=== PATIENT | female | born 1990 | race Caucasian/White ===

== ENCOUNTER 2017-06-11 19:53 | Emergency (ER) | payer MEDICAID, MEDICARE, SELFPAY ==
[2017-06-11] MEDS ORDERED: traMADol HCl 50 MG TAB ONE (21:03)
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
== END 2017-06-11 22:01 | disposition home or self-care (01) ==
LOC: ERS 19:53
DX: S20.212A Contusion of left front wall of thorax, initial encounter (principal); S20.221A Contusion of right back wall of thorax, initial encounter; J45.909 Unspecified asthma, uncomplicated; F17.210 Nicotine dependence, cigarettes, uncomplicated; V43.62XA Car passenger injured in collision with other type car in traffic accident, initial encounter
CPT/HCPCS: 71020

== ENCOUNTER 2017-08-07 06:02 | Emergency (ER) | payer MEDICAID, MEDICARE, SELFPAY | END 2017-08-07 07:05 | disposition home or self-care (01) | LOC: ERS 06:02 | DX: M54.5 Low back pain (principal); J45.909 Unspecified asthma, uncomplicated; F17.210 Nicotine dependence, cigarettes, uncomplicated | CPT/HCPCS: 99406 ==

== ENCOUNTER 2017-11-25 19:29 | Emergency (ER) | payer SELFPAY ==
[2017-11-25 21:53] LABS: #Basophils 0.1 thou/uL (0.0-0.2); #Eosinphils 0.4 thou/uL (0.0-0.7); #Lymphocytes 3.1 thou/uL (1.20-3.40); #Monocytes 0.5 thou/uL (0.11-0.59); #Neutrophils 7.1 thou/uL (1.40-6.50); %Basophils 0.6 % (0.0-1.0); %Eosinophils 3.8 % (0.0-10.0); %Lymphocytes 27.6 % (21.0-51.0); %Monocytes 4.6 % (0.0-10.0); %Neutrophils 63.5 % (42.0-75.0); Hemoglobin 13.6 g/dL (12.0-16.0); Mean Corpuscular HGB CONC 34.5 g/dL (32.0-36.0); Mean Corpuscular Hemoglobin 31.6 pg (27.0-31.0); Mean Corpuscular Volume 91.5 fl (81.0-99.0); Platelet Count 283 thou/uL (130-400); Red Blood Cell (RBC) Count 4.31 mill/uL (4.20-5.40); White Blood Cell (WBC) Count 11.2 thou/uL (4.8-10.8)
--- NOTE | 2017-11-25 22:06 | RAD ---
AP VIEW OF THE CHEST: 11/25/17 INDICATION: Three days of migraine headache without fever. FINDINGS: There are low lung volumes. No focal consolidation, pleural effusion or pneumothorax evident. No acut e osseous abnormality is evident. Heart size and pulmonary vasculature are accentuated by the hypoinf lation. IMPRESSION: Hypoinflation. No definite acute cardiopulmonary abnormality. POS: [facility]
[2017-11-25 22:13] LABS: ALT (SGPT) 38 U/L (8-55); AST (SGOT) 26 U/L (5-34); Alkaline Phosphatase 105 U/L (40-150); Anion Gap 12 mmol/L (10-20); BUN (Urea Nitrogen) 15 mg/dL (7.0-18.7); Bilirubin, Total 0.3 mg/dL (0.2-1.2); Calc. Creatinine Clearance 0 mL/min (70-130); Calcium 9.2 mg/dL (7.8-10.44); Carbon Dioxide 25 mmol/L (22-29); Chloride 101 mmol/L (98-107); Estimated GFR-MDRD 69; Globulin 3.5 g/dL (2.4-3.5); Glucose 78 mg/dL (70-105); Potassium 4.1 mmol/L (3.5-5.1); Protein, Total 7.5 g/dL (6.0-8.3); Sodium 134 mmol/L (136-145)
[2017-11-25] MEDS ORDERED: Metoclopramide HCl 10 MG/2 ML VIAL ONE (22:27)
[2017-11-25] MEDS ORDERED: diphenhydrAMINE 50 MG/ML VIAL ONE (22:27)
[2017-11-25] MEDS ORDERED: Magnesium Sulfate 2 GM/100 ML BAG ONE (23:08)
[2017-11-25 23:52] LABS: Bilirubin Negative (Negative); Blood, Urine Negative (Negative); Clarity CLEAR (Clear); Glucose, Urine (Dipstick) Negative (Negative); Leukocyte Negative (Negative); Nitrite Negative (Negative); Protein, Urine (Dipstick) Negative (Neg-Trace); Specific Gravity, Urine 1.007 (1.002-1.036); Urobilinogen 0.2 mg/dL (0.2-1.0)
[2017-11-25 23:54] LABS: Pregnancy Test - Urine (BHCG) Negative (Negative); Pregu Control Background? CLEAR/WHITE (CLR/WHITE); Pregu Control Bar Appear? YES (CONTROL BAR)
[2017-11-25 23:55] LABS: Specific Gravity 1.007 (1.002-1.036)
[2017-11-26] MEDS ORDERED: Dexamethasone 10 MG/ML VIAL ONE (01:01)
== END 2017-11-26 01:24 | disposition home or self-care (01) ==
LOC: ERS 19:29
DX: R51 Headache (principal); J45.909 Unspecified asthma, uncomplicated; F17.210 Nicotine dependence, cigarettes, uncomplicated
CPT/HCPCS: 71045; 80053; 81003; 81025; 83880; 85025; 96361; 96365; 96375; J1100; J1200; J2765; J3475

== ENCOUNTER 2017-11-27 15:07 | Observation (INO) | payer SELFPAY ==
[2017-11-27] MEDS ORDERED: diphenhydrAMINE 50 MG/ML VIAL ONE (18:06)
[2017-11-27] MEDS ORDERED: Metoclopramide HCl 10 MG/2 ML VIAL ONE (18:06)
[2017-11-27 18:33] LABS: #Eosinphils 0.1 thou/uL (0.0-0.7); #Monocytes 0.8 thou/uL (0.11-0.59); #Neutrophils 6.9 thou/uL (1.40-6.50); %Basophils 0.2 % (0.0-1.0); %Eosinophils 0.5 % (0.0-10.0); %Lymphocytes 34.3 % (21.0-51.0); %Monocytes 6.7 % (0.0-10.0); %Neutrophils 58.3 % (42.0-75.0); Hemoglobin 12.7 g/dL (12.0-16.0); Mean Corpuscular HGB CONC 33.4 g/dL (32.0-36.0); Mean Corpuscular Hemoglobin 30.8 pg (27.0-31.0); Mean Corpuscular Volume 92.4 fl (81.0-99.0); Mean Platelet Volume 7.3 fL (7.4-10.4); Platelet Count 275 thou/uL (130-400); RBC Distribution Width 12.3 % (11.5-14.5); Red Blood Cell (RBC) Count 4.11 mill/uL (4.20-5.40); White Blood Cell (WBC) Count 11.7 thou/uL (4.8-10.8)
[2017-11-27 18:40] LABS: BHCG - Serum Negative (NEGATIVE); Pregs Control Background? CLEAR/WHITE (CLR/WHITE); Pregs Control Bar Appear? YES (CONTROL BAR)
[2017-11-27 18:54] LABS: ALT (SGPT) 29 U/L (8-55); AST (SGOT) 17 U/L (5-34); Albumin 3.9 g/dL (3.5-5.0); Alkaline Phosphatase 87 U/L (40-150); Anion Gap 10 mmol/L (10-20); BUN (Urea Nitrogen) 16 mg/dL (7.0-18.7); Bilirubin, Total 0.2 mg/dL (0.2-1.2); Calc. Creatinine Clearance 0 mL/min (70-130); Calcium 9.3 mg/dL (7.8-10.44); Carbon Dioxide 28 mmol/L (22-29); Chloride 106 mmol/L (98-107); Estimated GFR-MDRD 85; Globulin 3.2 g/dL (2.4-3.5); Glucose 86 mg/dL (70-105); Potassium 3.9 mmol/L (3.5-5.1); Protein, Total 7.1 g/dL (6.0-8.3); Sodium 140 mmol/L (136-145)
--- NOTE | 2017-11-27 20:50 | CT ---
CT BRAIN WITHOUT CONTRAST: HISTORY: Headache. Fever. Photopenia. COMPARISON: CT brain from 10/26/2016. FINDINGS: No acute territorial infarct or hemorrhage. No midline shift or mass effect. The ventricular size a nd the extraaxial CSF spaces are normal. The calvarium is intact. The paranasal sinuses and mastoids are clear. IMPRESSION: No acute intracranial abnormality. POS: [facility]
[2017-11-27] MEDS ORDERED: Lorazepam 2 MG/ML VIAL ONE (20:57)
[2017-11-27] MEDS ORDERED: Lidocaine 1% (PF) 30 ML VIAL ONE ×2 (20:58)
[2017-11-27] MEDS ORDERED: Morphine 4 MG/ML VIAL ONE (20:58)
[2017-11-27] MEDS ORDERED: Dexamethasone 10 MG/ML VIAL ONE (21:11)
[2017-11-27] MEDS ORDERED: Magnesium Sulfate 2 GM/100 ML BAG ONE (21:12)
[2017-11-27 22:32] LABS: CSF Source CSF; Clarity Clear (Clear); Tube # 1
[2017-11-27 22:34] LABS: CSF Source CSF; Clarity Clear (Clear); RBC Count - Manual 1 /cumm (None Seen); RBC Count - Manual 14 /cumm (None Seen); Tube # 4; WBC/NonHematics Count - Manual 2 /cumm (0-5)
[2017-11-27] MEDS ORDERED: Acetaminophen 500 MG TAB ONE ×2 (23:05→23:09)
[2017-11-27 23:53] LABS: Color Of CSF Supernatant COLORLESS (Colorless); Unspun CSF Color COLORLESS (Colorless)
[2017-11-27 23:54] LABS: Tube # 1
[2017-11-27 23:59] LABS: CSF, Glucose 64 mg/dl (40-70); CSF, Protein 28 mg/dL (15-40)
[2017-11-28] MEDS ORDERED: Acetaminophen 325 MG TAB PO PRN (01:48)
[2017-11-28] MEDS ORDERED: Ondansetron HCl/PF 4 MG/2 ML Vial IVP PRN (01:48)
[2017-11-28] MEDS ORDERED: Ondansetron ODT 4 MG TAB SL PRN (01:48)
[2017-11-28] MEDS: HYDROcodone/Acetaminophen 10/325 mg Tablet PO PRN ×3 (11:03→18:52)
[2017-11-28 13:12] VITALS: BMI 37.5
[2017-11-28] MEDS: cefTRIAXone\\ROCEPHIN 2 GM in Sodium Chloride 0.9% 100 ML IVPB SCH (15:25)
[2017-11-28] MEDS: Sodium Chloride 0.9% 1,000 ML IV SCH ×2 (15:28→21:08)
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
--- NOTE | 2017-11-28 20:32 | CON ---
DATE OF CONSULTATION: 11/28/2017 CONSULTING PHYSICIAN: Hospitalist Service. IMPRESSION: Acute onset of a severe headache with a negative workup thus far suggesting a migraine. PLAN: Suman protocol. HISTORY OF PRESENT ILLNESS: Ms. Higgins is a 27-year-old white female, who denies a past history of hea daches. Five days ago, she developed abrupt onset of a severe headache in the frontal region. It sp read to more global location, has a throbbing quality, and has been associated with some nausea and d izziness. The pain is intensified by activities. She had a CT scan of the brain done, which was neg ative. She had a spinal tap done, which did not show any evidence of infection or bleeding. She has been given hydrocodone, but still reports 8/10 headache. She is not at this point as far s he knows she has not been recently either. There were no prodromal symptoms that she can re call. She apparently had some transient fever since admission. PAST MEDICAL HISTORY: Otherwise, negative. ALLERGIES: None reported. SOCIAL HISTORY: Unremarkable. FAMILY HISTORY: Unremarkable. REVIEW OF SYSTEMS: Negative for any double vision, vision loss, slurred speech, difficulty swallowin g, lateralized weakness or numbness. No alteration of consciousness or seizures. PHYSICAL EXAMINATION: GENERAL: She is a moderately obese young woman, sitting at the bedside, in some degree of distress. VITAL SIGNS: Have been stable. She is afebrile. HEENT: Pupils are equal and reactive. Conjunctivae clear. Oropharynx is clear. She is a bit photo phobic. NEUROLOGIC: She is alert and cooperative. Her speech is fluent and clear. Exam is nonfocal. SUMMARY: I suspect we are dealing with migraine. Hopefully, she will respond to the [facility] and be stable for discharge tomorrow.
[2017-11-28] MEDS: Famotidine/PF 20 mg/2ml Vial SLOW IVP SCH (20:48)
[2017-11-28] MEDS: Vancomycin HCl 1 GM in Premix Bag 1 BAG IVPB SCH (20:49)
[2017-11-28] MEDS ORDERED: Vancomycin HCl 1 GM in Sodium Chloride 0.9% 250 ML 250 ML IVPB SCH (21:00)
[2017-11-29] MEDS: HYDROcodone/Acetaminophen 10/325 mg Tablet PO PRN ×5 (00:05→22:33)
[2017-11-29 05:28] LABS: #Eosinphils 0.1 thou/uL (0.0-0.7); #Lymphocytes 4.1 thou/uL (1.20-3.40); #Monocytes 0.6 thou/uL (0.11-0.59); #Neutrophils 3.9 thou/uL (1.40-6.50); %Basophils 0.5 % (0.0-1.0); %Eosinophils 0.7 % (0.0-10.0); %Lymphocytes 47.7 % (21.0-51.0); %Monocytes 6.5 % (0.0-10.0); %Neutrophils 44.7 % (42.0-75.0); Hemoglobin 12.3 g/dL (12.0-16.0); Mean Corpuscular HGB CONC 32.7 g/dL (32.0-36.0); Mean Corpuscular Hemoglobin 30.9 pg (27.0-31.0); Mean Corpuscular Volume 94.5 fl (81.0-99.0); Mean Platelet Volume 7.2 fL (7.4-10.4); Platelet Count 226 thou/uL (130-400); RBC Distribution Width 12.4 % (11.5-14.5); Red Blood Cell (RBC) Count 3.99 mill/uL (4.20-5.40); White Blood Cell (WBC) Count 8.6 thou/uL (4.8-10.8)
[2017-11-29 05:43] LABS: Anion Gap 10 mmol/L (10-20); BUN (Urea Nitrogen) 17 mg/dL (7.0-18.7); Calc. Creatinine Clearance 209 mL/min (70-130); Calcium 8.5 mg/dL (7.8-10.44); Carbon Dioxide 23 mmol/L (22-29); Chloride 110 mmol/L (98-107); Estimated GFR-MDRD 89; Glucose 78 mg/dL (70-105); Potassium 3.7 mmol/L (3.5-5.1); Sodium 139 mmol/L (136-145)
[2017-11-29] MEDS ORDERED: Metoclopramide HCl 10 MG/2 ML VIAL IVP SCH (11:00)
[2017-11-29] MEDS ORDERED: Valproate Sodium 1,500 MG in Sodium Chloride 0.9% 100 ML IVPB SCH (11:00)
[2017-11-29] MEDS ORDERED: Dexamethasone 4 mg/ml Vial SLOW IVP SCH (11:00)
[2017-11-29] MEDS: Dihydroergotamine Mesylate 1 MG/ML AMP SLOW IVP SCH ×2 (11:34→17:56)
[2017-11-29] MEDS: Sodium Chloride 0.9% 1,000 ML IV SCH ×2 (14:46→17:14)
[2017-11-29] MEDS ORDERED: Promethazine HCl 25 MG/ML VIAL SLOW IVP PRN (15:07)
[2017-11-29] MEDS ORDERED: Morphine 5 MG/ML SYRINGE SLOW IVP PRN (15:07)
[2017-11-29] MEDS: Famotidine/PF 20 mg/2ml Vial SLOW IVP SCH ×2 (16:03→22:34)
[2017-11-29] MEDS: cefTRIAXone\\ROCEPHIN 2 GM in Sodium Chloride 0.9% 100 ML IVPB SCH (16:06)
[2017-11-29] MEDS: Vancomycin HCl 1 GM in Premix Bag 1 BAG IVPB SCH (17:00)
--- NOTE | 2017-11-29 21:35 | PDOC.PN ---
- Subjective Encounter Start Date: 11/29/17 Encounter Start Time: 11:00 PAtient is seen today, alert and oriented. She continuos to have headache, not responding to PO narcotics, pt needing IV narcotics to keep Headache down. No fever. - Objective Resuscitation Status: Resuscitation Status FULL:Full Resuscitation MAR Reviewed: Yes Vital Signs & Weight: Vital Signs (12 hours) Temp Pulse Resp BP 11/29/17 17:28 98.9 F 63 20 111/62 11/29/17 11:36 97.6 F 60 20 112/60 Weight Admit Weight 269 lb 2.944 oz Weight 269 lb 2.944 oz I&O: 11/28/17 11/29/17 11/30/17 06:59 06:59 06:59 Intake Total 997 Balance 997 Result Diagrams: 11/29/17 05:12 11/29/17 05:12 Radiology Reviewed by me: Yes Phys Exam - Physical Examination HEENT: PERRLA, moist MMs Neck: no nodes, no JVD Respiratory: no wheezing, no rales Gastrointestinal: soft, non-tender Musculoskeletal: no edema Dx/Plan (1) Intractable headache Code(s): R51 - HEADACHE Status: Acute Comment: Pt is seen today, persistant headache, Not controlled with Oral narcotics, Neurology seen pt, said likely Migraine. Plan discharge when pt able to tolrate oral meds. (2) Acute bacterial meningitis Code(s): G00.9 - BACTERIAL MENINGITIS, UNSPECIFIED Status: Acute Comment: No fever, Normal WBC. With No fever, No neck stiffness, cultures remain neg, Likely poor evidence of Menningitis, will d/c Abx if No fever tomorrow. (3) Morbid obesity Code(s): E66.01 - MORBID (SEVERE) OBESITY DUE TO EXCESS CALORIES Status: Acute (4) HTN (hypertension) Code(s): I10 - ESSENTIAL (PRIMARY) HYPERTENSION Status: Acute Comment: well controlled.waiitng on echo. - Plan cont current plan of care, continue antibiotics, PT/OT, incentive spirometry, out of bed/ambulate, DVT proph w/lovenox * . - Discharge Day Encounter end time: 11:35 Review of Systems - Review of Systems Constitutional: weakness. negative: fever, chills, sweats, malaise, other Eyes: negative: Pain, Vision Change, Conjunctivae Inflammation, Eyelid Inflammation, Redness, Other ENT: negative: Ear Pain, Ear Discharge, Nose Pain, Nose Discharge, Nose Congestion, Mouth Pain, Mouth Swelling, Throat Pain, Throat Swelling, Other Respiratory: negative: Cough, Dry, Shortness of Breath, Hemoptysis, SOB with Excertion, Pleuritic Pain, Sputum, Wheezing Cardiovascular: negative: chest pain, palpitations, orthopnea, paroxysmal nocturnal dyspnea, edema, light headedness, other Gastrointestinal: negative: Nausea, Vomiting, Abdominal Pain, Diarrhea, Constipation, Melena, Hematochezia, Other Musculoskeletal: negative: Neck Pain, Shoulder Pain, Arm Pain, Back Pain, Hand Pain, Leg Pain, Foot Pain, Other - Medications/Allergies Allergies/Adverse Reactions: Allergies Allergy/AdvReac Type Severity Reaction Status Date / Time ketorolac [From Toradol] Allergy Verified 11/28/17 01:47 Medications: Current Medications Hydrocodone Bitart/Acetaminophen ([place] 10/325) 1 tab PO Q4H PRN PRN Reason: Pain Last Admin: 11/29/17 17:55 Dose: 1 tab Dihydroergotamine Mesylate (D.H.E. 45) 0.5 mg SLOW IVP Q6HR ESTELA Stop: 11/30/17 06:01 Last Admin: 11/29/17 17:56 Dose: 0.5 mg Famotidine (Pepcid) 20 mg SLOW IVP Q12HR ESTELA Last Admin: 11/29/17 16:03 Dose: 20 mg Sodium Chloride (Normal Saline 0.9%) 1,000 mls @ 100 mls/hr IV .Q10H ESTELA Last Admin: 11/29/17 17:14 Dose: Not Given Ceftriaxone Sodium 2 gm/ (Sodium Chloride) 100 mls @ 200 mls/hr IVPB Q24HR ESTELA Last Admin: 11/29/17 16:06 Dose: 100 mls Vancomycin HCl 1 gm/ Device 200 mls @ 200 mls/hr IVPB 0500,1700 ESTELA Morphine Sulfate (Morphine) 3 mg SLOW IVP Q4H PRN PRN Reason: Headache Promethazine HCl (Phenergan) 12.5 mg SLOW IVP Q6H PRN PRN Reason: Nausea Last Admin: 11/29/17 16:07 Dose: 12.5 mg Sodium Chloride (Flush - Normal Saline) 10 ml IVF Q12HR ESTELA Last Admin: 11/29/17 17:58 Dose: 10 ml Sodium Chloride (Flush - Normal Saline) 10 ml IVF PRN PRN PRN Reason: Saline Flush
[2017-11-30] MEDS: Sodium Chloride 0.9% 1,000 ML IV SCH ×2 (00:27→14:22)
[2017-11-30] MEDS: Dihydroergotamine Mesylate 1 MG/ML AMP SLOW IVP SCH ×2 (00:28→06:21)
[2017-11-30] MEDS ORDERED: Vancomycin HCl 1 GM in Premix Bag 1 BAG IVPB SCH (05:00)
[2017-11-30] MEDS: HYDROcodone/Acetaminophen 10/325 mg Tablet PO PRN ×2 (06:24→10:35)
[2017-11-30] MEDS: Famotidine/PF 20 mg/2ml Vial SLOW IVP SCH (08:58)
[2017-11-30 12:14] VITALS: BP 127/68; TEMP 97.9
--- NOTE | 2017-11-30 14:11 | DIS ---
DATE OF ADMISSION: 11/28/2017 DATE OF DISCHARGE: 11/30/2017 ADMITTING DIAGNOSIS: Acute intractable headache. DISCHARGE DIAGNOSIS: Acute intractable headache, likely migraine. SECONDARY DIAGNOSES: 1. Possible meningitis ruled out. 2. Morbid obesity. 3. Volume overload with pedal edema. 4. Hypertension. HISTORY OF PRESENT ILLNESS AND HOSPITAL COURSE: In brief, this is a 27-year-old morbidly obese white female who was recently admitted with a severe headache and was discharged home and she returned mathieu with worsening headache with a fever of 101 and with neck stiffness. Initially with a suspicion fo r meningitis, she was started on IV antibiotics with vancomycin and Rocephin. She had a lumbar punct ure, which showed a clear CSF fluid and there was no growth in the cultures and no WBCs. Her antibio tics were stopped after 2 days and she had no fevers. Neurology was also consulted because of the pe rsistent headaches and he suggested the patient could be having atypical migraine headaches and sugge sted to continue on the pain medications. Patient's headache has slowly resolved, but she was on IV narcotics which was changed to p.o Tylenol #3 on the day of discharge. The patient was sent home, re assured about ruling out meningitis. PHYSICAL EXAMINATION: On date of discharge: VITAL SIGNS: Blood pressures are 127/68, heart rate is 58, respiration rate is 18, saturation 98%. GENERAL: The patient is moderately built and morbidly obese. She is alert and oriented x3. HEENT: Atraumatic, normocephalic. CARDIOVASCULAR: S1, S2 normal. No murmurs, no rubs, no gallops. LUNGS: Bilateral air entry was equal. No wheezing, no crackles. ABDOMEN: Soft, nontender. No guarding, no rebound tenderness. Bowel sounds normal. MUSCULOSKELETAL: No calf tenderness. No pedal edema. DISCHARGE MEDICATIONS: The patient was discharged on Tylenol #3 and advised to take 1 tablet q.6 polly rs as needed. DISCHARGE INSTRUCTIONS: Continue activity as tolerated. Advised to return to work as she feels comf ortable with the headache. Continue with heart healthy diet. Advised to increase physical activity and exercise and to lose weight. I spent 35 minutes with this patient the day of discharge.
== END 2017-11-30 14:31 | disposition home or self-care (01) ==
LOC: ERS 15:07 → 3SE 11-28 00:10
PROVIDERS: ADMIT Internal Medicine; ATTEND Internal Medicine
DX: R51 Headache (principal); I10 Essential (primary) hypertension; E87.70 Fluid overload, unspecified; E66.01 Morbid (severe) obesity due to excess calories; Z68.35 Body mass index [BMI] 35.0-35.9, adult; Z88.8 Allergy status to other drugs, medicaments and biological substances
CPT/HCPCS: 36415; 62270; 70450; 80048; 80053; 82945; 83605; 84145; 84157; 84703; 85025; 86140; 87040; 87070; 87205; 89051; 96361; 96365; 96366; 96367; 96375; 96376; 99406; A4216; G0378; J0696; J1100; J1110; J1200; J2001; J2060; J2270; J2550; J2765; J3370; J3475; J7050; Q0162; S0028

== ENCOUNTER 2018-04-05 00:38 | Emergency (ER) | payer SELFPAY ==
[2018-04-05 01:13] LABS: #Basophils 0.1 thou/uL (0.0-0.2); #Eosinphils 0.2 thou/uL (0.0-0.7); #Lymphocytes 2.1 thou/uL (1.20-3.40); #Monocytes 0.5 thou/uL (0.11-0.59); #Neutrophils 5.4 thou/uL (1.40-6.50); %Basophils 0.8 % (0.0-1.0); %Eosinophils 2.6 % (0.0-10.0); %Lymphocytes 25.3 % (21.0-51.0); %Monocytes 6.1 % (0.0-10.0); %Neutrophils 65.2 % (42.0-75.0); Hemoglobin 13.1 g/dL (12.0-16.0); Mean Corpuscular HGB CONC 32.9 g/dL (32.0-36.0); Mean Corpuscular Hemoglobin 30.4 pg (27.0-31.0); Mean Corpuscular Volume 92.6 fL (78.0-98.0); Mean Platelet Volume 6.9 fL (7.4-10.4); Platelet Count 343 thou/uL (130-400); RBC Distribution Width 12.6 % (11.5-14.5); Red Blood Cell (RBC) Count 4.31 mill/uL (4.20-5.40); White Blood Cell (WBC) Count 8.3 thou/uL (4.8-10.8)
[2018-04-05 01:35] LABS: ALT (SGPT) 35 U/L (8-55); AST (SGOT) 28 U/L (5-34); Alkaline Phosphatase 93 U/L (40-150); Anion Gap 16 mmol/L (10-20); BUN (Urea Nitrogen) 14 mg/dL (7.0-18.7); Bilirubin, Total 0.2 mg/dL (0.2-1.2); CK (CPK) 98 U/L (29-168); Calc. Creatinine Clearance 0 mL/min (70-130); Calcium 9.1 mg/dL (7.8-10.44); Carbon Dioxide 17 mmol/L (22-29); Chloride 107 mmol/L (98-107); Estimated GFR-MDRD 84; Globulin 3.6 g/dL (2.4-3.5); Glucose 102 mg/dL (70-105); Lipase 23 U/L (8-78); Potassium 3.8 mmol/L (3.5-5.1); Protein, Total 7.6 g/dL (6.0-8.3); Sodium 136 mmol/L (136-145)
[2018-04-05 01:39] LABS: CKMB 0.7 ng/mL (0-6.6); Troponin I Less than 0.010 ng/mL (< 0.028)
--- NOTE | 2018-04-05 07:52 | RAD ---
PORTABLE UPRIGHT FRONTAL CHEST RADIOGRAPH: DATE: 04/05/18. COMPARISON: 11/25/17. HISTORY: Chest pain. FINDINGS: No pneumothorax, pleural fluid, focal consolidation, or alveolar edema. Heart and mediastinal contou rs unremarkable. IMPRESSION: No acute findings. POS: [facility]
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
[2018-04-05] MEDS ORDERED: ISOVUE-370 76%-LOCM 1 ML ONE (11:09)
--- NOTE | 2018-04-07 18:24 | EKG ---
Test Reason : CHEST PAIN Blood Pressure : / mmHG Vent. Rate : 099 BPM Atrial Rate : 099 BPM P-R Int : 140 ms QRS Dur : 090 ms QT Int : 342 ms P-R-T Axes : 047 016 025 degrees QTc Int : 438 ms Normal sinus rhythm Normal ECG Confirmed by MCKENZIE JAMES, KARAN Diaz ([id number]), video tape editor BEAR MOORE ([id number]) on 04/07/2018 6:24:12 PM Referred By: MCKENZIE Confirmed By:KARAN RINCON MD
== END 2018-04-05 03:37 | disposition home or self-care (01) ==
LOC: ERS 00:38
DX: R07.9 Chest pain, unspecified (principal); J45.909 Unspecified asthma, uncomplicated; Z87.891 Personal history of nicotine dependence
CPT/HCPCS: 36415; 71045; 71275; 80053; 82553; 83690; 84484; 85025; 85379; 93005; 94640; J7620

== ENCOUNTER 2018-04-10 06:40 | Emergency (ER) | payer SELFPAY ==
[2018-04-10] MEDS ORDERED: predniSONE 20 MG TAB ONE (07:49)
[2018-04-10] MEDS ORDERED: Acetaminophen 500 MG TAB ONE (07:49)
[2018-04-10 07:54] LABS: #Basophils 0.1 thou/uL (0.0-0.2); #Eosinphils 0.4 thou/uL (0.0-0.7); #Lymphocytes 3.2 thou/uL (1.20-3.40); #Monocytes 0.6 thou/uL (0.11-0.59); #Neutrophils 6.5 thou/uL (1.40-6.50); %Basophils 0.7 % (0.0-1.0); %Lymphocytes 29.8 % (21.0-51.0); %Monocytes 5.7 % (0.0-10.0); %Neutrophils 59.7 % (42.0-75.0); Hemoglobin 13.1 g/dL (12.0-16.0); Mean Corpuscular HGB CONC 32.9 g/dL (32.0-36.0); Mean Corpuscular Hemoglobin 30.3 pg (27.0-31.0); Mean Corpuscular Volume 92.2 fL (78.0-98.0); Mean Platelet Volume 6.9 fL (7.4-10.4); Platelet Count 413 thou/uL (130-400); RBC Distribution Width 12.4 % (11.5-14.5); Red Blood Cell (RBC) Count 4.33 mill/uL (4.20-5.40); White Blood Cell (WBC) Count 10.8 thou/uL (4.8-10.8)
[2018-04-10 08:27] LABS: ALT (SGPT) 27 U/L (8-55); AST (SGOT) 18 U/L (5-34); Albumin 4.1 g/dL (3.5-5.0); Alkaline Phosphatase 105 U/L (40-150); Anion Gap 13 mmol/L (10-20); BUN (Urea Nitrogen) 20 mg/dL (7.0-18.7); Bilirubin, Total 0.3 mg/dL (0.2-1.2); Calc. Creatinine Clearance 0 mL/min (70-130); Calcium 9.6 mg/dL (7.8-10.44); Carbon Dioxide 22 mmol/L (22-29); Chloride 106 mmol/L (98-107); Estimated GFR-MDRD 78; Globulin 3.6 g/dL (2.4-3.5); Glucose 89 mg/dL (70-105); Lipase 53 U/L (8-78); Potassium 3.9 mmol/L (3.5-5.1); Protein, Total 7.7 g/dL (6.0-8.3); Sodium 137 mmol/L (136-145)
--- NOTE | 2018-04-10 08:31 | RAD ---
AP VIEW CHEST: Date: 04/10/18 INDICATION: Cough and abdominal pain. COMPARISON: Prior exam dated 04/05/18. IMPRESSION: No acute cardiopulmonary abnormality demonstrated. The examination is not appreciably changed from e recent comparison study. POS: [facility]
[2018-04-10 09:08] LABS: Bilirubin Negative (Negative); Blood, Urine Trace (Negative); Clarity CLEAR (Clear); Glucose, Urine (Dipstick) Negative (Negative); Leukocyte Negative (Negative); Nitrite Negative (Negative); Protein, Urine (Dipstick) Negative (Neg-Trace); Specific Gravity, Urine 1.016 (1.002-1.036); Urobilinogen 0.2 mg/dL (0.2-1.0); pH, Urine 5.5 (5.0-9.0)
[2018-04-10 09:09] LABS: Bacteria/HPF None Seen HPF (None Seen); Hyaline Casts/LPF 0-3 HYALINE CAST LPF (0-3 Hyaline); Pathc Cast-AUWi Flag 0.29 (0-2.49); Squamous Epithelial 0-3 HPF (0-3); WBC/HPF 0-3 HPF (0-3)
[2018-04-10 09:13] LABS: Pregnancy Test - Urine (BHCG) Negative (Negative); Pregu Control Background? CLEAR/WHITE (CLR/WHITE); Pregu Control Bar Appear? YES (CONTROL BAR); Specific Gravity 1.016 (1.002-1.036)
== END 2018-04-10 09:35 | disposition home or self-care (01) ==
LOC: ERS 06:40
DX: J18.9 Pneumonia, unspecified organism (principal); J45.909 Unspecified asthma, uncomplicated; R10.31 Right lower quadrant pain; F17.210 Nicotine dependence, cigarettes, uncomplicated; Z79.899 Other long term (current) drug therapy
CPT/HCPCS: 36415; 71045; 80053; 81003; 81015; 81025; 83690; 85025; 94640; 96360; J7506; J7620

== ENCOUNTER 2018-05-02 00:54 | Emergency (ER) | payer SELFPAY ==
[2018-05-02] MEDS ORDERED: Morphine 4 MG/ML VIAL ONE (01:18)
== END 2018-05-02 01:35 | disposition home or self-care (01) ==
LOC: ERS 00:54
DX: H72.91 Unspecified perforation of tympanic membrane, right ear (principal); J45.909 Unspecified asthma, uncomplicated; F17.210 Nicotine dependence, cigarettes, uncomplicated; Z79.899 Other long term (current) drug therapy
CPT/HCPCS: 96372; J2270

== ENCOUNTER 2018-05-06 22:40 | Emergency (ER) | payer SELFPAY ==
[2018-05-06] MEDS ORDERED: HYDROcodone/Acetaminophen 10/325 mg Tablet ONE (23:10)
--- NOTE | 2018-05-07 00:30 | CT ---
CT BRAIN WITHOUT CONTRAST: INDICATIONS: History of fever, photophobia, and headache. FINDINGS: No acute infarct, hemorrhage, or hydrocephalus is present. The septum pellucidum and third ventricle are midline. There is mild paranasal sinus disease involving the ethmoid air cells. The skull is i ntact. Effusion involving the right mastoid air cells. No destructive osteolysis is present. IMPRESSION: 1. No acute intracranial abnormality demonstrated. 2. Mild paranasal sinus disease. 3. Small partial effusion in the right mastoid air cells. POS: [facility]
== END 2018-05-07 00:15 | disposition home or self-care (01) ==
LOC: ERS 22:40
DX: H66.91 Otitis media, unspecified, right ear (principal); H72.91 Unspecified perforation of tympanic membrane, right ear; H70.91 Unspecified mastoiditis, right ear; J45.909 Unspecified asthma, uncomplicated; F17.210 Nicotine dependence, cigarettes, uncomplicated; Z79.899 Other long term (current) drug therapy
CPT/HCPCS: 70450

== ENCOUNTER 2018-07-14 17:26 | Emergency (ER) | payer SELFPAY | END 2018-07-14 18:13 | disposition home or self-care (01) | LOC: ERS 17:26 | DX: J02.9 Acute pharyngitis, unspecified (principal); J45.909 Unspecified asthma, uncomplicated; F17.210 Nicotine dependence, cigarettes, uncomplicated | CPT/HCPCS: 87081; 87430; 99283 ==

== ENCOUNTER 2018-07-25 12:15 | Emergency (ER) | payer SELFPAY ==
[2018-07-25 12:45] LABS: Bilirubin Small (Negative); Blood, Urine Large (Negative); Clarity CLOUDY (Clear); Glucose, Urine (Dipstick) Negative (Negative); Leukocyte Small (Negative); Nitrite Positive (Negative); Protein, Urine (Dipstick) 30 mg/dL (Neg-Trace); Specific Gravity, Urine 1.027 (1.002-1.036); pH, Urine 5.5 (5.0-9.0)
[2018-07-25 12:47] LABS: Bacteria/HPF None Seen HPF (None Seen); Hyaline Casts/LPF 7-10 HYALINE CAST LPF (0-3 Hyaline); Pathc Cast-AUWi Flag 1.59 (0-2.49); RBC/HPF GREATER THAN 50-TNTC HPF (0-3); Squamous Epithelial 0-3 HPF (0-3); WBC/HPF 21-50 HPF (0-3)
[2018-07-25 12:51] LABS: Pregnancy Test - Urine (BHCG) Negative (Negative); Pregu Control Background? CLEAR/WHITE (CLR/WHITE); Pregu Control Bar Appear? YES (CONTROL BAR); Specific Gravity 1.027 (1.002-1.036)
[2018-07-25 12:59] LABS: #Eosinphils 0.2 thou/uL (0.0-0.7); #Lymphocytes 2.4 thou/uL (1.20-3.40); #Monocytes 0.7 thou/uL (0.11-0.59); #Neutrophils 10.9 thou/uL (1.40-6.50); %Basophils 0.3 % (0.0-1.0); %Eosinophils 1.3 % (0.0-10.0); %Lymphocytes 16.7 % (21.0-51.0); %Monocytes 4.7 % (0.0-10.0); Hemoglobin 15.5 g/dL (12.0-16.0); Mean Corpuscular HGB CONC 33.5 g/dL (32.0-36.0); Mean Corpuscular Hemoglobin 30.2 pg (27.0-31.0); Mean Platelet Volume 7.4 fL (7.4-10.4); Platelet Count 330 thou/uL (130-400); RBC Distribution Width 12.4 % (11.5-14.5); Red Blood Cell (RBC) Count 5.13 mill/uL (4.20-5.40); White Blood Cell (WBC) Count 14.2 thou/uL (4.8-10.8)
[2018-07-25 13:18] LABS: ALT (SGPT) 27 U/L (8-55); AST (SGOT) 18 U/L (5-34); Albumin 4.5 g/dL (3.5-5.0); Alkaline Phosphatase 108 U/L (40-150); Anion Gap 18 mmol/L (10-20); BUN (Urea Nitrogen) 18 mg/dL (7.0-18.7); Bilirubin, Total 0.5 mg/dL (0.2-1.2); Calc. Creatinine Clearance 0 mL/min (70-130); Carbon Dioxide 21 mmol/L (22-29); Chloride 105 mmol/L (98-107); Estimated GFR-MDRD 64; Globulin 3.9 g/dL (2.4-3.5); Glucose 97 mg/dL (70-105); Potassium 3.5 mmol/L (3.5-5.1); Protein, Total 8.4 g/dL (6.0-8.3); Sodium 140 mmol/L (136-145)
[2018-07-25] MEDS ORDERED: Ondansetron PF 4 MG/2 ML Vial ONE (14:14)
[2018-07-25] MEDS ORDERED: Water For Inject, Bacteriostat 30 ML ONE (14:15)
[2018-07-25] MEDS ORDERED: cefTRIAXone\\ROCEPHIN 1 GM VIAL ONE (14:15)
[2018-07-25] MEDS ORDERED: Morphine 4 MG/ML VIAL ONE (14:45)
--- NOTE | 2018-07-25 14:45 | CT ---
CT ABDOMEN AND PELVIS WITHOUT IV CONTRAST: Date: 07/25/18 INDICATION: History of flank pain. COMPARISON: Prior CT of abdomen and pelvis dated 12/14/16 and CTA of chest dated 04/05/18. FINDINGS: There is a 3.0 mm calculus seen within the superior to mid pole of the right kidney. There is mild ri ght hydronephrosis. There is a 3.0 mm stone within the distal right ureter approximately 8.0 mm from the level of the bladder. Unopacified liver, pancreas, adrenal glands, and spleen appear within normal limits. Gallbladder is s urgically absent. No free fluid or enlarged lymph nodes are evident. There is a normal appendix in the right lower quadrant. The bladder is decompressed. A Schmorl's node involving the superior aspect of T12 is stable. There is mild scattered degenerative change of the lower lumbar spine. There are mild degenerative changes of both SI joints. IMPRESSION: 1. 3.0 mm distal right ureteral calculus with mild right hydronephrosis. 2. Right nephrolithiasis. 3. Cholecystectomy. POS: [facility]
[2018-07-25] MEDS ORDERED: HYDROcodone/Acetaminophen 5/325 mg Tablet ONE (15:24)
== END 2018-07-25 15:38 | disposition home or self-care (01) ==
LOC: ERS 12:15
DX: N13.2 Hydronephrosis with renal and ureteral calculous obstruction (principal); N10 Acute pyelonephritis; J45.909 Unspecified asthma, uncomplicated; F17.210 Nicotine dependence, cigarettes, uncomplicated
CPT/HCPCS: 36415; 74176; 80053; 81003; 81015; 81025; 85025; 96374; 96375; J0696; J2270; J2405

== ENCOUNTER 2018-07-26 08:28 | Emergency (ER) | payer SELFPAY ==
[2018-07-26] MEDS ORDERED: Ketorolac Tromethamine 30 MG/ML VIAL ONE (10:23)
[2018-07-26 10:32] LABS: #Basophils 0.1 thou/uL (0.0-0.2); #Eosinphils 0.2 thou/uL (0.0-0.7); #Lymphocytes 3.3 thou/uL (1.20-3.40); #Monocytes 0.7 thou/uL (0.11-0.59); #Neutrophils 8.3 thou/uL (1.40-6.50); %Basophils 0.6 % (0.0-1.0); %Eosinophils 1.5 % (0.0-10.0); %Lymphocytes 26.7 % (21.0-51.0); %Monocytes 5.2 % (0.0-10.0); Hemoglobin 14.5 g/dL (12.0-16.0); Mean Corpuscular HGB CONC 33.9 g/dL (32.0-36.0); Mean Corpuscular Hemoglobin 30.5 pg (27.0-31.0); Mean Platelet Volume 7.9 fL (7.4-10.4); Platelet Count 347 thou/uL (130-400); RBC Distribution Width 12.4 % (11.5-14.5); Red Blood Cell (RBC) Count 4.76 mill/uL (4.20-5.40); White Blood Cell (WBC) Count 12.5 thou/uL (4.8-10.8)
[2018-07-26] MEDS ORDERED: Morphine 4 MG/ML VIAL ONE ×2 (10:48→12:25)
[2018-07-26] MEDS ORDERED: Morphine 2 MG/ML SYRINGE ONE (10:48)
[2018-07-26] MEDS ORDERED: Ondansetron PF 4 MG/2 ML Vial ONE (10:49)
[2018-07-26 10:57] LABS: ALT (SGPT) 27 U/L (8-55); AST (SGOT) 17 U/L (5-34); Albumin 4.3 g/dL (3.5-5.0); Alkaline Phosphatase 98 U/L (40-150); BUN (Urea Nitrogen) 16 mg/dL (7.0-18.7); Bilirubin, Total 0.5 mg/dL (0.2-1.2); Calc. Creatinine Clearance 0 mL/min (70-130); Calcium 10.1 mg/dL (7.8-10.44); Carbon Dioxide 24 mmol/L (22-29); Chloride 106 mmol/L (98-107); Estimated GFR-MDRD 67; Globulin 3.8 g/dL (2.4-3.5); Glucose 104 mg/dL (70-105); Potassium 3.7 mmol/L (3.5-5.1); Protein, Total 8.1 g/dL (6.0-8.3); Sodium 142 mmol/L (136-145)
[2018-07-26 11:37] LABS: Anion Gap 16 mmol/L (10-20)
--- NOTE | 2018-07-26 13:37 | ULT ---
ULTRASOUND RENAL BILATERAL STANDARD: Date: 07/26/18 HISTORY: Pain. Bladder stones. COMPARISON: CT stone protocol prior day. FINDINGS: Real-time Ann scale and color evaluation of the urinary bladder and both kidneys was performed. FINDINGS: Right kidney measures 11.9 x 7.4 x 6.4 cm. Left kidney measures 11.6 x 6.4 x 6.6 cm. Only the left ur eteral jet is visualized. Mild right-sided hydronephrosis. IMPRESSION: Mild right-sided hydronephrosis with only the left ureteral jet visualized. This is likely sequelae o f a known distal ureteral stone. POS: [facility]
[2018-07-26] MEDS ORDERED: Lidocaine 2% PF 5 ML VIAL ONE (13:52)
[2018-07-26] MEDS ORDERED: Lidocaine 2% PF 5 ML VIAL IV SCH (14:00)
== END 2018-07-26 14:15 | disposition home or self-care (01) ==
LOC: ERS 08:28
DX: N30.00 Acute cystitis without hematuria (principal); N23 Unspecified renal colic; N13.30 Unspecified hydronephrosis; J45.909 Unspecified asthma, uncomplicated; F17.210 Nicotine dependence, cigarettes, uncomplicated; Z79.899 Other long term (current) drug therapy
CPT/HCPCS: 76770; 80053; 85025; 96361; 96374; 96375; 96376; J1885; J2001; J2270; J2405

== ENCOUNTER 2018-07-27 14:39 | Observation (INO) | payer SELFPAY ==
[2018-07-27 16:00] LABS: #Basophils 0.1 thou/uL (0.0-0.2); #Eosinphils 0.3 thou/uL (0.0-0.7); #Lymphocytes 3.9 thou/uL (1.20-3.40); #Monocytes 0.5 thou/uL (0.11-0.59); #Neutrophils 5.3 thou/uL (1.40-6.50); %Basophils 0.6 % (0.0-1.0); %Eosinophils 2.9 % (0.0-10.0); %Lymphocytes 38.8 % (21.0-51.0); %Monocytes 4.9 % (0.0-10.0); %Neutrophils 52.9 % (42.0-75.0); Hemoglobin 13.2 g/dL (12.0-16.0); Mean Corpuscular HGB CONC 34.1 g/dL (32.0-36.0); Mean Corpuscular Hemoglobin 30.9 pg (27.0-31.0); Mean Corpuscular Volume 90.7 fL (78.0-98.0); Mean Platelet Volume 7.6 fL (7.4-10.4); Platelet Count 268 thou/uL (130-400); RBC Distribution Width 12.1 % (11.5-14.5); Red Blood Cell (RBC) Count 4.26 mill/uL (4.20-5.40)
[2018-07-27 16:20] LABS: Anion Gap 14 mmol/L (10-20); BUN (Urea Nitrogen) 16 mg/dL (7.0-18.7); Calc. Creatinine Clearance 0 mL/min (70-130); Carbon Dioxide 23 mmol/L (22-29); Chloride 106 mmol/L (98-107); Estimated GFR-MDRD 77; Potassium 3.7 mmol/L (3.5-5.1); Sodium 139 mmol/L (136-145)
[2018-07-27 16:21] LABS: ALT (SGPT) 28 U/L (8-55); AST (SGOT) 19 U/L (5-34); Albumin 3.8 g/dL (3.5-5.0); Alkaline Phosphatase 97 U/L (40-150); Bilirubin, Total 0.2 mg/dL (0.2-1.2); Globulin 3.3 g/dL (2.4-3.5); Glucose 98 mg/dL (70-105); Protein, Total 7.1 g/dL (6.0-8.3)
[2018-07-27] MEDS ORDERED: Morphine 10 MG/ML VIAL ONE (18:36)
[2018-07-27] MEDS ORDERED: Ondansetron PF 4 MG/2 ML Vial ONE (18:36)
--- NOTE | 2018-07-27 19:21 | CT ---
CT ABDOMEN AND PELVIS 07/27/18 COMPARISON: 07/25/18 HISTORY: Pain, obstructive uropathy. TECHNIQUE: Axial CT imaging at 5 mm intervals from lung bases through pubic symphysis without contrast. Coronal reformatted imaging obtained. FINDINGS: Lack of contrast limits assessment of the viscera, bowel, vascular structures and for lymphadenopathy . Imaged lung bases are unremarkable. No free intraperitoneal air, or fluid. Cholecystectomy clips are noted in the right upper quadrant. There is a focal area of fatty infiltrat ion involving the anterior aspect of the left lobe of the liver. adjacent to the falciform ligament. The spleen, pancreas, and bilateral adrenal glands appear unremarkable. There is no evidence for obstructive uropathy or nephrolithiasis on the left. As seen on the prior examination, there is an obstructing stone within the distal right ureter at the ureterovesicular junction, best seen on axial image 86, measuring approximately 3 x 4 mm. There is r ight sided hydronephrosis, similar when compared to the prior examination. Of note, on the prior stud y there was an intrarenal calculus on the right in the mid pole region. That stone is now within the proximal right ureter at the level of the ureteropelvic junction suggesting a second obstructing ston e, measuring approximately 4 mm in craniocaudal dimension. The bowel demonstrates no evidence for inf lammatory change of obstruction. Appendix is visualized and appears within normal limits. The osseous structures demonstrate no worrisome lytic or blastic lesions. There is a lower lumbar spi ne facet hypertrophic change. IMPRESSION: 1. The obstructing stone at the distal right ureter at the level of the ureterovesicular junctio n seen on the 07/25/18 examination has not significantly changed. Of note, the 4 mm stone which was pre viously within the mid pole of the right kidney is now located within the proximal right ureter at th e right ureteropelvic junction. 2. No evidence for obstructive uropathy on the left. 3. Appendix appears unremarkable. POS: [facility]
[2018-07-27] MEDS ORDERED: cefTRIAXone\\ROCEPHIN 1 GM VIAL ONE (19:42)
[2018-07-27] MEDS ORDERED: Morphine 4 MG/ML VIAL ONE (19:42)
[2018-07-27] MEDS ORDERED: Sodium Chloride 0.9% 100 ML ONE (19:42)
[2018-07-27 20:50] LABS: Bilirubin Negative (Negative); Blood, Urine Large (Negative); Clarity CLOUDY (Clear); Glucose, Urine (Dipstick) Negative (Negative); Leukocyte Small (Negative); Nitrite Negative (Negative); Protein, Urine (Dipstick) Trace mg/dL (Neg-Trace); Specific Gravity, Urine 1.017 (1.002-1.036); Urobilinogen 0.2 mg/dL (0.2-1.0); pH, Urine 5.5 (5.0-9.0)
[2018-07-27 20:51] LABS: Bacteria/HPF None Seen HPF (None Seen); Hyaline Casts/LPF 4-6 HYALINE CAST LPF (0-3 Hyaline); Pathc Cast-AUWi Flag 1.01 (0-2.49); Pregnancy Test - Urine (BHCG) Negative (Negative); Pregu Control Background? CLEAR/WHITE (CLR/WHITE); Pregu Control Bar Appear? YES (CONTROL BAR); Specific Gravity 1.017 (1.002-1.036)
[2018-07-27 20:56] LABS: Yeast-AUWi Flag 52.4 (0-25.0)
[2018-07-27 21:05] LABS: RBC/HPF 21-50 HPF (0-3)
[2018-07-27 21:06] LABS: Yeast-All Forms 1+ HPF (None Seen)
[2018-07-27 21:11] LABS: Trichomonas/HPF Rare HPF (None Seen)
[2018-07-27] MEDS ORDERED: HYDROmorphone 0.5 MG/0.5 ML SYRINGE ONE (21:14)
[2018-07-27] MEDS ORDERED: Morphine 4 MG/ML VIAL SLOW IVP PRN (21:46)
[2018-07-27] MEDS ORDERED: Ondansetron PF 4 MG/2 ML Vial IVP PRN (21:47)
[2018-07-27] MEDS ORDERED: Acetaminophen 325 MG TAB PO PRN (21:47)
[2018-07-27] MEDS ORDERED: Ondansetron ODT 4 MG TAB SL PRN (21:47)
[2018-07-27 22:20] VITALS: BMI 34.8
[2018-07-27] MEDS: Sodium Chloride 0.9% 1,000 ML IV SCH (22:36)
[2018-07-28] MEDS: HYDROcodone/Acetaminophen 10/325 mg Tablet PO PRN ×4 (01:03→16:55)
[2018-07-28] MEDS: Sodium Chloride 0.9% 1,000 ML IV SCH (07:28)
[2018-07-28] MEDS ORDERED: Iothalamate Meglumine 60% 50 ML VIAL FS ONE (07:38)
[2018-07-28] MEDS ORDERED: Fentanyl 100 MCG/2 ML VIAL ONE ×2 (09:14→09:23)
[2018-07-28] MEDS ORDERED: B & O ONE (10:27)
[2018-07-28] MEDS ORDERED: Promethazine HCl 25 MG/ML VIAL IM PRN (10:46)
[2018-07-28] MEDS ORDERED: Ondansetron HCl/PF 4 MG/2 ML Vial IVP PRN (10:46)
[2018-07-28] MEDS ORDERED: Promethazine HCl 25 MG/ML VIAL SLOW IVP PRN (10:46)
[2018-07-28] MEDS ORDERED: Ondansetron PF 4 MG/2 ML Vial ONE ×2 (10:51→15:30)
[2018-07-28] MEDS: Morphine 4 MG/ML VIAL IV PRN ×2 (11:26→15:19)
--- NOTE | 2018-07-28 11:57 | OP ---
DATE OF PROCEDURE: 07/28/2018 SERVICE: Urology. PREOPERATIVE DIAGNOSIS: Right ureteral stone. POSTOPERATIVE DIAGNOSIS: Right ureteral stone. PROCEDURES PERFORMED: Cystoscopy with right retrograde pyelogram and right ureteral stent placement, 6 x 26 double-J stent. INDICATION FOR PROCEDURE: Ivania is a 27-year-old white female, who presented to the ER approximately four days ago with severe right flank pain. She was diagnosed with a 4-mm distal right ureteral stone and was discharged home with pain medication and Flomax. Unfortunately, her pain became worse and she could not control this and so, she came back to the ER and was found to have a second stone within the proximal ureter on the same side. Due to intractable pain and now two stones, we have elected to bring her in for cystoscopy and stent placement. Risks and benefits have been discussed and she has agreed to proceed forward. DESCRIPTION OF PROCEDURE: After identification of armband and verification of consent, the patient was brought back to the operating room, where she underwent general anesthesia with endotracheal intubation. She was then placed in dorsal lithotomy position and prepped and draped in usual sterile fashion. After appropriate time-out, a lubricated 22-Syrian rigid cystoscope was introduced per urethra into the bladder. There was some mild squamous metaplasia on the trigone, but otherwise the remainder of the bladder appeared normal. Both ureters were in orthotopic location with some edema around the right ureteral orifice. The right ureteral orifice was intubated with a 5-Syrian [place] catheter and attempted a retrograde pyelogram was performed, but due to the obstructing stone, most the contrast only went into the mid to distal ureter and the rest of the contrast effluxed out into the bladder. Given the failure of the retrograde, elected to go ahead and move forward with a stent placement. The [place] catheter was removed and a 0.035 Sensor wire was advanced through the right ureteral orifice up to the level of the renal pelvis. There was some difficulty navigating past the distal stone, but with some minor manipulation, the wire was able to go up easy afterwards. A 6 x 26 double-J stent was then brought in over the Sensor wire up to the level of renal pelvis. The wire was then removed leaving a good curl in renal pelvis and good curl in the bladder. The bladder was then emptied and cystoscope removed. The patient was then awakened, taken to PACU for recovery in stable condition. COMPLICATIONS: None. ESTIMATED BLOOD LOSS: Minimal. RETAINED TUBES AND DRAINS: 6 x 26 double-J stent on the right. SPECIMEN: None. DISPOSITION: The patient will be discharged home and follow up with me in approximately a week and a half for cystoscopy and right ureteroscopy and laser lithotripsy of both right ureteral stones. Job ID: [id number]
--- NOTE | 2018-07-28 12:02 | RAD ---
RETROGRADE PYELOGRAM: DATE: 07/28/2018. HISTORY: Renal stone disease on the right, right stent placement. FINDINGS: Two images are provided. One image demonstrates contrast media within the urinary bladder and an inc ompletely opacified ureter on the right which is mildly prominent in its mid portion. Recent CT exam ination demonstrated 2 obstructing stones within the right ureter. The 2nd image demonstrates a righ t double-J ureteral stent. IMPRESSION: Right double-J ureteral stent placement. POS: VENICE
--- NOTE | 2018-07-28 12:57 | DIS ---
DATE OF ADMISSION: 07/27/2018 DATE OF DISCHARGE: 07/28/2018 SHORT STAY DISCHARGE SUMMARY. DISCHARGING PHYSICIAN: Caesar Servin MD. ADMITTING DIAGNOSES: Right ureteral stone and intractable flank pain. DISCHARGE DIAGNOSIS: Right ureteral stones. PROCEDURE PERFORMED: While in observation is right ureteral stent placement. HISTORY: Please see H and P. HOSPITAL COURSE: The patient was admitted with IV pain control. In the morning, she underwent a cystoscopy with ureteral stent placement and was discharged home subsequently. DISPOSITION: Discharged to home. DISCHARGE INSTRUCTIONS: In SEP, please see electronic orders. Followup will be on August 09 for definitive ureteroscopy. Job ID: [id number]
[2018-07-28] MEDS ORDERED: Glycopyrrolate 0.2 MG/ML 5 ML SYRINGE ONE (15:30)
[2018-07-28] MEDS ORDERED: PROPOFOL 200 MG/20 ML VIAL ONE (15:30)
[2018-07-28] MEDS ORDERED: Rocuronium Bromide 10 MG/ML (10ML VIAL) ONE (15:30)
[2018-07-28] MEDS ORDERED: Succinylcholine Chloride 20 MG/ML 10 ml SYRINGE FS ONE (15:30)
[2018-07-28] MEDS ORDERED: Lidocaine 1% PF 5 ML VIAL ONE (15:30)
[2018-07-28 16:13] VITALS: TEMP 98
[2018-07-28 17:00] VITALS: BP 98/65
== END 2018-07-28 19:10 | disposition home or self-care (01) ==
LOC: ERS 14:39 → SURG B 21:42
PROVIDERS: ADMIT Urology; ATTEND Urology
PROC: 0T768DZ Dilation of Right Ureter with Intraluminal Device, Via Natural or Artificial Opening Endoscopic (ICD-10-PCS; principal; 2018-07-28)
DX: N20.1 Calculus of ureter (principal); F17.200 Nicotine dependence, unspecified, uncomplicated; Z88.6 Allergy status to analgesic agent; Z90.49 Acquired absence of other specified parts of digestive tract; Z90.89 Acquired absence of other organs; Z79.2 Long term (current) use of antibiotics; Z79.899 Other long term (current) drug therapy; Z98.890 Other specified postprocedural states
CPT/HCPCS: 36415; 74176; 74420; 80053; 81003; 81015; 81025; 85025; 87086; 96361; 96374; 96375; 96376; C1758; C1769; G0378; J0696; J1170; J2001; J2270; J2405; J2704; J3010; J7050; Q9961

== ENCOUNTER 2018-08-02 06:44 | Outpatient (CLI) | payer SELFPAY ==
[2018-08-02 16:59] LABS: Hemoglobin 15.2 g/dL (12.0-16.0); Mean Corpuscular HGB CONC 33.5 g/dL (32.0-36.0); Mean Corpuscular Hemoglobin 31.1 pg (27.0-31.0); Mean Corpuscular Volume 92.7 fL (78.0-98.0); Mean Platelet Volume 7.8 fL (7.4-10.4); Platelet Count 389 thou/uL (130-400); RBC Distribution Width 12.6 % (11.5-14.5); White Blood Cell (WBC) Count 12.1 thou/uL (4.8-10.8)
[2018-08-02 17:07] LABS: PTT 33.2 SEC (22.9-36.1); Prothrombin Time 12.7 SEC (12.0-14.7)
[2018-08-02 17:13] LABS: Bilirubin Negative (Negative); Blood, Urine Large (Negative); Clarity CLOUDY (Clear); Glucose, Urine (Dipstick) Negative (Negative); Leukocyte Small (Negative); Nitrite Negative (Negative); Protein, Urine (Dipstick) 30 mg/dL (Neg-Trace); Specific Gravity, Urine 1.015 (1.002-1.036); Urobilinogen 0.2 mg/dL (0.2-1.0); pH, Urine 5.5 (5.0-9.0)
[2018-08-02 17:15] LABS: Bacteria/HPF Rare-Few HPF (None Seen); Hyaline Casts/LPF 0-3 HYALINE CAST LPF (0-3 Hyaline); Pathc Cast-AUWi Flag 0.58 (0-2.49); RBC/HPF GREATER THAN 50-TNTC HPF (0-3); WBC/HPF 21-50 HPF (0-3)
[2018-08-02 17:26] LABS: Anion Gap 13 mmol/L (10-20); BUN (Urea Nitrogen) 14 mg/dL (7.0-18.7); Calc. Creatinine Clearance 0 mL/min (70-130); Calcium 9.7 mg/dL (7.8-10.44); Carbon Dioxide 24 mmol/L (22-29); Chloride 104 mmol/L (98-107); Estimated GFR-MDRD 78; Glucose 93 mg/dL (70-105); Potassium 3.8 mmol/L (3.5-5.1); Sodium 137 mmol/L (136-145)
== END 2018-08-02 06:45 | disposition home or self-care (01) ==
LOC: LABBT 06:44
PROVIDERS: ATTEND Urology
DX: Z01.812 Encounter for preprocedural laboratory examination (principal); N20.0 Calculus of kidney
CPT/HCPCS: 80048; 81001; 85027; 85610; 85730; 87086

== ENCOUNTER 2018-08-09 09:20 | Day surgery (SDC) | payer OTHER, SELFPAY ==
[2018-08-02 15:08] VITALS: BMI 34.8
[2018-08-09] MEDS ORDERED: Fentanyl 100 MCG/2 ML VIAL ONE ×5 (11:05→13:54)
[2018-08-09] MEDS ORDERED: Levofloxacin 500 mg/D5W 100 ml Premix Bag ONE (12:02)
[2018-08-09] MEDS ORDERED: Iothalamate Meglumine 60% 50 ML VIAL FS ONE (12:25)
[2018-08-09] MEDS ORDERED: Phenazopyridine HCl 97.5 MG TABLET ONE (13:12)
[2018-08-09] MEDS ORDERED: HYDROcodone/Acetaminophen 5/325 mg Tablet ONE (15:04)
[2018-08-09] MEDS ORDERED: Ondansetron PF 4 MG/2 ML Vial ONE (15:26)
[2018-08-09] MEDS ORDERED: Lidocaine 1% PF 5 ML VIAL ONE (15:26)
[2018-08-09] MEDS ORDERED: Rocuronium Bromide 10 MG/ML (10ML VIAL) ONE (15:26)
[2018-08-09] MEDS ORDERED: PROPOFOL 200 MG/20 ML VIAL ONE (15:26)
[2018-08-09] MEDS ORDERED: Dexamethasone 20 MG/5 ML VIAL ONE (15:26)
[2018-08-09] MEDS ORDERED: Glycopyrrolate 0.2 MG/ML 5 ML SYRINGE ONE (15:26)
--- NOTE | 2018-08-09 16:08 | OP ---
DATE OF PROCEDURE: 08/09/2018 SERVICE: Urology. PREOPERATIVE DIAGNOSIS: Right ureteral stone. POSTOPERATIVE DIAGNOSIS: Right ureteral stone. PROCEDURES PERFORMED: Right ureteroscopy, laser lithotripsy, basket extraction of stone, and placement of 6 x 26 double-J stent. INDICATION FOR PROCEDURE: Ms. Higgins is a 28-year-old white female, who presented to the ER approximately 2 weeks ago with a right ureteral stone, which had been in place with a new right ureteral stone in the proximal ureter. I had stented her at that time and she is now returning back to the operating room for definitive management of her stones. Her urine culture was negative preoperatively. All risks and benefits have been discussed. DESCRIPTION OF PROCEDURE: After identification of armband and verification of consent, the patient was brought back to the operating room, where she underwent general anesthesia with endotracheal intubation. She was then placed in dorsal lithotomy position, and prepped and draped in usual sterile fashion. After appropriate time-out, a lubricated 22-Marshallese rigid cystoscope was introduced per urethra into the bladder. Attention was turned to the right ureteral orifice, from which there was a stent emanating. Flexible grasper was used to grasp the stent and bring it up to the level of the urethral meatus. A 0.035 Sensor wire was advanced through the ureteral stent up to the level of renal pelvis, and the stent was removed and discarded. A semi-rigid ureteroscope was then advanced alongside the Sensor wire after the cystoscope was removed into the distal ureter, where the distal stone was encountered. A 200 micron laser fiber was used to fragment the stones into smaller pieces, and a 1.9-Marshallese ZeroTip Nitinol basket was used to extract the pieces for stone analysis. Subsequently, the semi-rigid ureteroscope was inserted back into the ureter to advance an Amplatz Super Stiff wire up to the level of renal pelvis. The Super Stiff wire left in place while the ureteroscope was removed, and an 11/13 x 36 cm ureteral access sheath was advanced over the Super Stiff wire up to the level of the proximal ureter. The inner cannula was removed leaving the outer sheath and Sensor wire in place as a safety wire. A flexible digital ureteroscope was then passed through the ureteral access sheath up to the level of the proximal ureter, where the stone was encountered. There was a significant amount of edema present at the stone and it was very obstructive. A 200 micron laser fiber was then used to break up the stone again, and a 1.9-Marshallese ZeroTip Nitinol basket used to extract the pieces. Upon completion, the ureter was completely patent and we were able to reach the calyx and renal pelvis. Full inspection of the calyces and renal pelvis did not demonstrate any additional stones and no stones were up there on CT scan. Satisfied that all stones were removed. Pull-back ureteroscopy was employed. No additional stones were found within the ureter. The cystoscope was then backloaded over the Sensor wire back into the bladder, and a 6 x 26 double-J stent with no string was advanced over the wire up to the level of renal pelvis. The wire was then removed leaving a good curl in the renal pelvis and a good curl in the bladder. The bladder was then emptied, and the cystoscope was removed. The patient awakened, taken to PACU for recovery in stable condition. COMPLICATIONS: None. ESTIMATED BLOOD LOSS: Minimal. RETAINED TUBES AND DRAINS: 6 x 26 double-J stent on the right. SPECIMENS: Stone analysis. DISPOSITION: The patient will be discharged home and follow up with me in 2 weeks for a cysto stent removal. Job ID: [id number]
[2018-08-13 16:11] LABS: CA Oxalate Monohydrate 92 % (.); Color Tan (.)
== END 2018-08-09 15:20 | disposition home or self-care (01) ==
LOC: SDC 09:20
PROVIDERS: ATTEND Urology
PROC: 0T768DZ Dilation of Right Ureter with Intraluminal Device, Via Natural or Artificial Opening Endoscopic (ICD-10-PCS; principal; 2018-08-09)
PROC: 0TF68ZZ Fragmentation in Right Ureter, Via Natural or Artificial Opening Endoscopic (ICD-10-PCS; principal; 2018-08-09)
DX: N20.1 Calculus of ureter (principal); F17.210 Nicotine dependence, cigarettes, uncomplicated; Z88.6 Allergy status to analgesic agent; Z88.5 Allergy status to narcotic agent
CPT/HCPCS: 76000; 82365; 88300; C1769; J1100; J1956; J2001; J2405; J2704; J3010; Q9961